=== PATIENT | female | born 1965 | race Caucasian/White ===

== ENCOUNTER 2018-09-05 16:42 | Emergency (ER) | payer OTHER ==
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
[2018-09-05] MEDS ORDERED: HYDROcod/ACETAM 5/325 MG TABLET PO STA (18:24)
[2018-09-05] MEDS ORDERED: ACETAMINOPHEN 500 MG TABLET PO STA (18:24)
[2018-09-05 19:04] VITALS: BP 121/92
== END 2018-09-05 19:05 | disposition home or self-care (01) ==
LOC: ED 16:42
DX: S50.819A Abrasion of unspecified forearm, initial encounter (principal); S49.92XA Unspecified injury of left shoulder and upper arm, initial encounter; V19.9XXA Pedal cyclist (driver) (passenger) injured in unspecified traffic accident, initial encounter; Y93.55 Activity, bike riding
CPT/HCPCS: 73030; 99283; 99284; A9270